=== PATIENT | male | born 1995 | race Caucasian/White ===

== ENCOUNTER 2020-07-12 05:31 | Emergency (ER) | payer SELFPAY ==
[2020-07-12 07:21] LABS: APPEARANCE,URINE SLIGHTLY-CLOUDY; BILIRUBIN,URINE NEGATIVE (NEGATIVE); COLOR,URINE YELLOW; GLUCOSE, URINE NEGATIVE (NEGATIVE); KETONES,URINE NEGATIVE (NEGATIVE); LEUKOCYTE ESTERASE,URINE NEGATIVE (NEGATIVE); NITRITE,URINE NEGATIVE (NEGATIVE); PROTEIN,URINE 30 mg/dL (NEGATIVE); URINE SPECIFIC GRAVITY 1.024
[2020-07-12 07:22] LABS: ALBUMIN 4.5 g/dL (3.5-5.0); ALKALINE PHOSPHATASE 65 U/L (38-126); ANION GAP 12 (5-19); ASPARTATE AMINO TRANSFERASE 65 U/L (17-59); BILIRUBIN,DIRECT 0.1 mg/dL (0.0-0.4); BILIRUBIN,TOTAL 1.3 mg/dL (0.2-1.3); BLOOD UREA NITROGEN 14 mg/dL (7-20); CALCIUM 9.6 mg/dL (8.4-10.2); CARBON DIOXIDE 23 mmol/L (22-30); CHLORIDE 104 mmol/L (98-107); GLUCOSE 128 mg/dL (75-110); POTASSIUM 4.7 mmol/L (3.6-5.0); TOTAL PROTEIN 7.3 g/dL (6.3-8.2)
[2020-07-12] MEDS ORDERED: HYDROMORPHONE HCL INJ/PF 2 MG/ML AMPULE IV ONE (07:30)
[2020-07-12] MEDS ORDERED: NORMAL SALINE 1000 ML 1,000 ML IV PRN (07:31)
[2020-07-12] MEDS ORDERED: ONDANSETRON HCL INJ/PF 4 MG/2 ML SDV IV ONE (07:31)
[2020-07-12 08:17] LABS: ABSOLUTE LYMPHOCYTES (AUTO) 1.2 10^3/uL (0.5-4.7); ABSOLUTE MONOCYTES (AUTO) 0.6 10^3/uL (0.1-1.4); ABSOLUTE NEUT (AUTO) 8.9 10^3/uL (1.7-8.2); BASOPHILS % (AUTO) 0.3 % (0-2); EOSINOPHILS % (AUTO) 0.3 % (0-6); HEMATOCRIT 42.8 % (37.9-51.0); HEMOGLOBIN 14.9 g/dL (13.5-17.0); LYMPHOCYTES % (AUTO) 11.2 % (13-45); MEAN CORPUSCULAR HEMOGLOBIN 31.5 pg (27.0-33.4); MEAN CORPUSCULAR HGB CONC 34.8 g/dL (32.0-36.0); MEAN CORPUSCULAR VOLUME 91 fl (80-97); MONOCYTES % (AUTO) 5.4 % (3-13); PLATELET COUNT 197 10^3/uL (150-450); RED BLOOD COUNT 4.73 10^6/uL (4.35-5.55); RED CELL DISTRIBUTION WIDTH 12.5 % (11.5-14.0); SEGMENTED NEUTROPHILS % (AUTO) 82.8 % (42-78); TOTAL CELLS COUNTED % (AUTO) 100 %; WHITE BLOOD COUNT 10.7 10^3/uL (4.0-10.5)
[2020-07-12] MEDS ORDERED: KETOROLAC TROMETHAMINE INJ/PF 30 MG/1 ML SDV IV ONE (08:17)
--- NOTE | 2020-07-12 08:47 | RADIOLOGY REPORT (SQ) ---
EXAM DESCRIPTION: CT ABD/PELVIS NO ORAL OR IV IMAGES COMPLETED DATE/TIME: 07/12/2020 8:22 am REASON FOR STUDY: raight flank pain/hematuria COMPARISON: None. TECHNIQUE: CT scan of the abdomen and pelvis performed without intravenous or oral contrast. Images reviewed with lung, soft tissue, and bone windows. Reconstructed coronal and sagittal MPR images revi ewed. All images stored on PACS. All CT scanners at this facility use dose modulation, iterative reconstruction, and/or weight based d osing when appropriate to reduce radiation dose to as low as reasonably achievable (ALARA). [facility]: Dose Right [facility]: CareDose [facility]: Dose Right [facility]: Teradose 4D [facility]: [place] RADIATION DOSE: CT Rad equipment meets quality standard of care and radiation dose reduction techniq ues were employed. CTDIvol: 19.2 mGy. DLP: 1176 mGy-cm. LIMITATIONS: None. FINDINGS: LOWER CHEST: No acute abnormality. NON-CONTRASTED LIVER, SPLEEN, ADRENALS: Evaluation is limited by the absence of intravenous contrast. There is hepatic steatosis with geographic areas of fat sparing along the gallbladder fossa. The s pleen is normal in size. There is no adrenal mass. PANCREAS: No acute gross abnormality of the pancreas. GALLBLADDER: No acute gross abnormality of the gallbladder. RIGHT KIDNEY AND URETER: Evaluation is limited due to the absence of intravenous contrast. There is a 3 mm calculus within the lumen of the urinary bladder (image 92 of series 3) that is associated wit h mild right-sided hydroureteronephrosis. There is no other renal or ureteral calculus. LEFT KIDNEY AND URETER: Evaluation is limited by the absence of intravenous contrast. There is no hy dronephrosis, nephrolithiasis, hydroureter or ureterolithiasis. AORTA AND RETROPERITONEUM: No aneurysm of the abdominal aorta. No retroperitoneal adenopathy, hemorr patrica or mass. BOWEL AND PERITONEAL CAVITY: No bowel obstruction, bowel wall thickening or pericolonic/ perienteric inflammation. No mesenteric adenopathy, free intraperitoneal fluid or mesenteric/omental inflammatio n. APPENDIX: Normal. PELVIS, BLADDER, AND ABDOMINAL WALL:No abdominal wall mass or hernia. BONES: The sclerotic lesion within the proximal right femur (image 54 series 601) could represent a b enign enostosis. OTHER: No other findings. IMPRESSION: 1. 3 mm calculus within the lumen of the urinary bladder (image 92 of series 3) that is associated mild right-sided hydronephrosis. There is no other renal or ureteral calculus. 2. Hepatic steatosis. COMMENT: Quality ID # [id number]: Final reports with documentation of one or more dose reduction techniques (e.g., Automated exposure control, adjustment of the mA and/or kV according to patient size, use of iterative reconstruction technique) TECHNICAL DOCUMENTATION: JOB ID: [id number] 2010 [employer]- All Rights Reserved Reading location - IP/workstation name: [email or web address]
--- NOTE | 2020-07-12 09:38 | ER Document Report ---
Entered by TG REYNAGA SCRIBE 07/12/20 0736 Acting as scribe for:MARQUIS NIEVES MD ED General - General Chief Complaint: Flank Pain Time Seen by Provider: 07/12/20 07:22 Information source: Patient Notes: This 25 year old male patient presents to the emergency department today with right flank pain. 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 Patient states the pain radiates to his RLQ above his waist. Patient reports nausea and vomiting from the pain. Denies any diarrhea, rectal bleeding, or rash. Patient denies history of kidney stones or any urinary symptoms, but states his urine is darker than usual. - Related Data Allergies/Adverse Reactions: No Known Allergies Allergy (Unverified 07/12/20 08:48) Past Medical History - General Information source: Patient - Social History Smoking Status: Never Smoker Cigarette use (# per day): No Frequency of alcohol use: Occasional Drug Abuse: None Family History: Reviewed & Not Pertinent Patient has homicidal ideation: No Renal/ Medical History: Denies: Hx Kidney Stones Past Surgical History: Reports: Hx Orthopedic Surgery - R wrist Review of Systems - Review of Systems Constitutional: No symptoms reported EENT: No symptoms reported Cardiovascular: No symptoms reported Respiratory: No symptoms reported Gastrointestinal: See HPI, Abdominal pain - RLQ, Nausea, Vomiting. denies: Diarrhea, Rectal bleeding Genitourinary: See HPI, Flank pain - R Male Genitourinary: No symptoms reported Musculoskeletal: No symptoms reported Skin: See HPI. denies: Rash Hematologic/Lymphatic: No symptoms reported Neurological/Psychological: No symptoms reported -: Yes All other systems reviewed and negative Physical Exam - Vital signs Vitals: Temp 97.6 F 07/12/20 06:21 - General General appearance: Alert - HEENT Head: Normocephalic, Atraumatic Eyes: Normal Pupils: PERRL - Respiratory Respiratory status: No respiratory distress Chest status: Nontender Breath sounds: Normal Chest palpation: Normal - Cardiovascular Rhythm: Regular Heart sounds: Normal auscultation Murmur: No - Abdominal Inspection: Obese Distension: No distension Bowel sounds: Normal Tenderness: Tender - RLQ - Back Back: CVA tenderness - Right - Extremities General upper extremity: Normal inspection, Normal ROM General lower extremity: Normal inspection, Normal ROM. No: Edema - Neurological Neuro grossly intact: Yes Cognition: Normal Orientation: AAOx4 [place] Coma Scale Eye Opening: Spontaneous [place] Coma Scale Verbal: Oriented [place] Coma Scale Motor: Obeys Commands [place] Coma Scale Total: 15 Speech: Normal Motor strength normal: LUE, RUE, LLE, RLE Sensory: Normal - Psychological Associated symptoms: Normal affect, Normal mood - Skin Skin Temperature: Warm Skin Moisture: Dry Skin Color: Normal Course - Re-evaluation Re-evalutation: 07/12/20 09:33 Patient resting comfortably pain-free at this time. Patient apparently has passed a kidney stone from the right ureter. On CT scan a 3 mm stone was found in the urinary bladder. - Vital Signs Vital signs: Temp Pulse Resp BP Pulse Ox 98.8 F 20 176/93 H 96 07/12/20 08:25 07/12/20 08:25 07/12/20 08:25 07/12/20 08:25 - Laboratory Result Diagrams: 07/12/20 07:58 07/12/20 06:43 Laboratory results interpreted by me: 07/12/20 07/12/20 07/12/20 06:00 06:43 07:58 WBC 10.7 H Lymph % (Auto) 11.2 L Absolute Neuts (auto) 8.9 H Seg Neutrophils % 82.8 H Glucose 128 H AST 65 H ALT 64 H Urine Protein 30 H Urine Blood LARGE H Urine Urobilinogen 2.0 H 07/12/20 09:35 07/12/20 07:58 07/12/20 06:43 MCV 91 fl (80-97) 07/12/20 07:58 MCH 31.5 pg (27.0-33.4) 07/12/20 07:58 MCHC 34.8 g/dL (32.0-36.0) 07/12/20 07:58 RDW 12.5 % (11.5-14.0) 07/12/20 07:58 Seg Neutrophils % 82.8 % (42-78) H 07/12/20 07:58 Chloride 104 mmol/L (98-107) 07/12/20 06:43 Carbon Dioxide 23 mmol/L (22-30) 07/12/20 06:43 Anion Gap 12 (5-19) 07/12/20 06:43 Est GFR ( Amer) > 60 (>60) 07/12/20 06:43 Glucose 128 mg/dL (75-110) H 07/12/20 06:43 Calcium 9.6 mg/dL (8.4-10.2) 07/12/20 06:43 Total Bilirubin 1.3 mg/dL (0.2-1.3) 07/12/20 06:43 AST 65 U/L (17-59) H 07/12/20 06:43 Alkaline Phosphatase 65 U/L (38-126) 07/12/20 06:43 Total Protein 7.3 g/dL (6.3-8.2) 07/12/20 06:43 Albumin 4.5 g/dL (3.5-5.0) 07/12/20 06:43 Lipase 33.8 U/L (23-300) 07/12/20 06:43 Urine Color YELLOW 07/12/20 06:00 Urine Appearance SLIGHTLY-CLOUDY 07/12/20 06:00 Urine pH 6.0 (5.0-9.0) 07/12/20 06:00 Ur Specific [place] 1.024 07/12/20 06:00 Urine Protein 30 mg/dL (NEGATIVE) H 07/12/20 06:00 Urine Glucose (UA) NEGATIVE mg/dL (NEGATIVE) 07/12/20 06:00 Urine Ketones NEGATIVE mg/dL (NEGATIVE) 07/12/20 06:00 Urine Blood LARGE (NEGATIVE) H 07/12/20 06:00 Urine Nitrite NEGATIVE (NEGATIVE) 07/12/20 06:00 Ur Leukocyte Esterase NEGATIVE (NEGATIVE) 07/12/20 06:00 Urine WBC (Auto) 2 /HPF 07/12/20 06:00 Urine RBC (Auto) >182 /HPF 07/12/20 06:00 Greater than 182 red blood cells per high-power field in the urinalysis. This is consistent with patient passing a ureteral stone at this time. No evidence for infection in urine. - Diagnostic Test Radiology reviewed: Image reviewed, Reports reviewed Radiology results interpreted by me: 07/12/20 09:33 Abdomen/Pelvis CT 07/12/20 07:32 IMPRESSION: 1. 3 mm calculus within the lumen of the urinary bladder (image 92 of series 3) that is associated mild right-sided hydronephrosis. There is no other renal or ureteral calculus. 2. Hepatic steatosis. Patient has a 3 mm calculus in the urinary bladder and mild right side hydronephrosis no other calculus seen. Hepatic steatosis noted. Discharge - Discharge Clinical Impression: Kidney stone on right side, Ureteral colic Condition: Stable Disposition: HOME, SELF-CARE Additional Instructions: Kidney Stone You are passing or have passed a kidney stone. These stones are usually due to increased calcium or uric acid concentrations in your urine. Stones within the kidney itself are not painful. The pain occurs as the stone leaves the kidney to pass down the long tube, called the ureter, leading to the bladder. If the stone is small, it will usually pass by itself. Most patients can pass the stone at home. You will usually receive medications for pain, nausea or vomiting, and sometimes a medication to assist in passing the kidney stone. However, if the pain is very severe or if vomiting prevents you from taking oral pain medications, you may need to return for further treatment. Drink three or four quarts of fluids per day. You will be given pain medication (if needed) and urine strainers. Strain all your urine to see if the stone passes. If your doctor has asked you to bring the stone in for analysis, return with the stone once it has passed. Return if pain or vomiting become severe, if you develop a high fever, if you are unable to pass your urine, or if other unusual symptoms occur. Recommend ibuprofen [id number] 600 mg every 8 hours if needed for pain. Forms: Return to Work I personally performed the services described in the documentation, reviewed and edited the documentation which was dictated to the scribe in my presence, and it accurately records my words and actions.
[2020-07-12 10:11] VITALS: BP 140/92
== END 2020-07-12 09:50 | disposition home or self-care (01) ==
LOC: ER 05:31
DX: N20.2 Calculus of kidney with calculus of ureter (principal); R10.31 Right lower quadrant pain; R11.2 Nausea with vomiting, unspecified
CPT/HCPCS: 99285; 96361; 96374; 96375; 36415; 83690; 85025; 80053; 81001; 74176; J1885; J1170; J2405; J7030